=== PATIENT | male | born 1995 | race African-American/Black ===

== ENCOUNTER 2024-02-23 08:19 | Inpatient (IN) ==
[2024-02-23 09:33] LABS: Urine Appearance Clear; Urine Bilirubin Negative (Negative); Urine Blood Negative (Negative); Urine Color Yellow; Urine Glucose Negative (Negative); Urine Ketones 1+ (Negative); Urine Nitrite Negative (Negative); Urine Protein Trace (Negative); Urine Specific Gravity 1.025 (1.002-1.030); Urine Urobilinogen Negative (Negative)
[2024-02-23 09:54] LABS: Urine Benzodiazepine Screen None Detected (None Detect); Urine Cannabinoids Screen Presumptive Positive (None Detect); Urine Opiates Screen None Detected (None Detect)
[2024-02-23] MEDS: chlorproMAZINE 25 MG/ML 2 ML (50 MG) IM ONE (18:38)
[2024-02-23] MEDS: Nicotine Lozenge mini 4 MG LOZNG.MINI MT PRN (19:14)
[2024-02-23] MEDS: chlorproMAZINE 25 MG/ML 2 ML (50 MG) ONE (19:20)
[2024-02-24] MEDS: Vitamin THERAPEUTIC TAB PO SCH (10:56)
[2024-02-24] MEDS: Nicotine PATCH 21 MG/24 HR PATCH TRANSDERM SCH (10:56)
[2024-02-24] MEDS: OLANZapine 10 mg TAB*ODT PO SCH (20:19)
[2024-02-26] MEDS: OLANZapine 5 mg TAB *ODT ONE (20:50)
[2024-02-26] MEDS: OLANZapine 5 mg TAB *ODT PO ONE (23:13)
[2024-02-28] MEDS: Al Hydrox/Mg Hydrox/Simet LIQ 30 ML UDC PO PRN (21:39)
[2024-02-29 09:13] VITALS: BP 136/66
== END 2024-02-29 13:49 | disposition home or self-care (01) | DRG 897 ==
LOC: ED 08:19 → BSU 13:30 → EDHOLD 14:14 → BSU 14:20
PROVIDERS: ADMIT Psychiatry & Neurology Psychiatry; ATTEND Psychiatry & Neurology Psychiatry